=== PATIENT | male | born 1960 | race Caucasian/White ===

== ENCOUNTER 2023-12-09 04:02 | Emergency (ER) | payer OTHER ==
[2023-12-09] MEDS ORDERED: Cefepime 2 GM VIAL ONE (04:21)
[2023-12-09] MEDS ORDERED: Ondansetron PF 4 MG/2 ML Vial ONE (04:21)
[2023-12-09 04:46] LABS: ALT (SGPT) 13 U/L (8-55); AST (SGOT) 15 U/L (5-34); Albumin 2.7 g/dL (3.4-4.8); Alkaline Phosphatase 66 U/L (40-110); Anion Gap 12 mmol/L (10-20); BUN (Urea Nitrogen) 13 mg/dL (8.4-25.7); Bilirubin, Total 0.5 mg/dL (0.2-1.2); Calc. Creatinine Clearance 0 mL/min (70-130); Carbon Dioxide 17 mmol/L (23-31); Chloride 106 mmol/L (98-107); Estimated GFR 75; Globulin 3.3 g/dL (2.4-3.5); Glucose 87 mg/dL (80-115); Potassium 3.4 mmol/L (3.5-5.1); Sodium 132 mmol/L (136-145); Troponin I 0.013 ng/mL (< 0.028)
[2023-12-09 04:47] LABS: Calcium 6.8 mg/dL (7.8-10.44); Critical Call Chemistry NUR.AEB @ 0447
[2023-12-09] MEDS ORDERED: Calcium Gluc 4.6 MEQ/10 ML (100 MG/ML) ONE (04:54)
[2023-12-09 05:12] LABS: Magnesium 1.6 mg/dL (1.6-2.6)
[2023-12-09 05:22] LABS: Band 3 % (5-11); Lymphocytes 9 % (21-51); Monocytes 9 % (0-10)
[2023-12-09 05:23] LABS: Hematocrit 24.9 % (38.8-50.0); Hemoglobin 8.5 g/dL (13.5-17.5); Mean Corpuscular HGB CONC 34.1 g/dL (32.0-36.0); Mean Corpuscular Hemoglobin 29.7 pg (27.0-33.0); Mean Corpuscular Volume 87.1 fl (81.2-95.1); Mean Platelet Volume 9.6 fl (7.4-10.4); Platelet Adequacy Comment Appears Adequate; Platelet Count 348 10x3/uL (150-450); RBC Morph Comment Within Normal Limits; Red Blood Cell (RBC) Count 2.86 10x6/uL (4.32-5.72); White Blood Cell (WBC) Count 16.5 10x3/uL (3.5-10.5)
[2023-12-09 05:24] LABS: Neutrophil 88 % (42-75)
[2023-12-09 05:39] LABS: Bilirubin Neg (Negative); Blood, Urine 150 (Negative); Glucose, Urine (Dipstick) Normal (Negative); Ketone, Urine Negative (Negative); Leukocyte 500 (Negative); Nitrite Negative (Negative); Protein, Urine (Dipstick) 30 mg/dl (Neg-Trace); Urobilinogen Normal mg/dL (Less than 2)
[2023-12-09 05:48] LABS: CAUTI Indications for Culture Fever or rigors; Clarity Slightly Cloudy (Clear)
[2023-12-09 05:49] LABS: Bacteria/HPF 4+ HPF (None Seen); Squamous Epithelial None Seen HPF (0-3)
[2023-12-09 05:50] LABS: Urine Culture Reflex No No
[2023-12-09] MEDS ORDERED: Iopamidol 370 76% 100 ML VIAL ONE (07:59)
== END 2023-12-09 11:26 | disposition short-term general hospital (02) ==
LOC: CSHERS 04:02
DX: N10 Acute pyelonephritis (principal); E11.9 Type 2 diabetes mellitus without complications; I10 Essential (primary) hypertension; E78.5 Hyperlipidemia, unspecified; K62.5 Hemorrhage of anus and rectum; I25.10 Atherosclerotic heart disease of native coronary artery without angina pectoris; B20 Human immunodeficiency virus [HIV] disease; Z95.1 Presence of aortocoronary bypass graft; Z79.82 Long term (current) use of aspirin; Z79.899 Other long term (current) drug therapy
CPT/HCPCS: 36415; 71045; 74177; 80053; 81001; 82330; 83605; 83735; 83880; 84484; 85025; 87040; 87077; 87086; 87186; 93005; 96365; 96367; 96375; J0612; J0692; J2405

== ENCOUNTER 2024-03-06 00:44 | Inpatient (IN) | payer OTHER ==
[2024-03-06 01:36] LABS: #Basophils 0.02 10x3/uL (0.0-0.2); #Eosinphils 0.02 10x3/uL (0.0-0.5); #Monocytes 0.74 10x3/uL (0.0-1.1); #Neutrophils 5.57 10x3/uL (1.5-8.4); %Basophils 0.3 % (0.0-2.0); %Eosinophils 0.3 % (0.0-6.0); %Lymphocytes 8.8 % (18.0-47.0); %Monocytes 10.6 % (0.0-10.0); %Neutrophils 79.4 % (40.0-75.0); Hematocrit 31.1 % (38.8-50.0); Hemoglobin 10.6 g/dL (13.5-17.5); Mean Corpuscular HGB CONC 34.1 g/dL (32.0-36.0); Mean Corpuscular Hemoglobin 31.7 pg (27.0-33.0); Mean Corpuscular Volume 93.1 fl (81.2-95.1); Mean Platelet Volume 9.9 fl (7.4-10.4); Platelet Count 175 10x3/uL (150-450); RBC Distribution Width 14.2 % (11.5-14.5); Red Blood Cell (RBC) Count 3.34 10x6/uL (4.32-5.72)
[2024-03-06 01:41] LABS: ALT (SGPT) 8 U/L (8-55); AST (SGOT) 11 U/L (5-34); Alkaline Phosphatase 54 U/L (40-110); Anion Gap 13 mmol/L (10-20); BUN (Urea Nitrogen) 16 mg/dL (8.4-25.7); Bilirubin, Total 0.4 mg/dL (0.2-1.2); Calc. Creatinine Clearance 0 mL/min (70-130); Calcium 8.5 mg/dL (7.8-10.44); Carbon Dioxide 20 mmol/L (23-31); Chloride 106 mmol/L (98-107); Estimated GFR 60; Globulin 3.5 g/dL (2.4-3.5); Glucose 103 mg/dL (80-115); Potassium 3.2 mmol/L (3.5-5.1); Protein, Total 6.5 g/dL (5.8-8.1); Sodium 136 mmol/L (136-145)
[2024-03-06] MEDS ORDERED: cefTRIAXone (ROCEPHIN) 2 GM VIAL ONE (01:47)
[2024-03-06 02:27] LABS: Bilirubin Neg (Negative); Blood, Urine 50 (Negative); Clarity Clear (Clear); Glucose, Urine (Dipstick) Normal (Negative); Ketone, Urine Negative (Negative); Leukocyte 500 (Negative); Nitrite Negative (Negative); Protein, Urine (Dipstick) 30 mg/dl (Neg-Trace); Urobilinogen Normal mg/dL (Less than 2)
[2024-03-06 02:35] LABS: CAUTI Indications for Culture Pelvic or flank pain; RBC/HPF 0-3 HPF (0-3); Squamous Epithelial 0-3 HPF (0-3)
[2024-03-06 02:36] LABS: Bacteria/HPF Rare-Few HPF (None Seen); Urine Culture Reflex Yes Yes
[2024-03-06] MEDS ORDERED: Nitroglycerin 0.4 MG TAB (25 Tab Bottle) SL PRN (04:42)
[2024-03-06 05:01] LABS: Magnesium 1.7 mg/dL (1.6-2.6)
[2024-03-06 05:04] VITALS: BMI 25.1
[2024-03-06] MEDS: Sodium Chloride 0.9% 1,000 ML IV SCH ×3 (05:30→13:30)
[2024-03-06] MEDS: Potassium Chloride 20 MEQ TAB PO SCH (05:33)
[2024-03-06] MEDS: Communication Order-Pharmacy FS ONE (05:38)
[2024-03-06] MEDS: VANCOMYCIN 1.75 GM/350 ML BAG 1.75 GM in Premix 1 BAG IVPB SCH (06:38)
[2024-03-06] MEDS: Morphine 2 MG/ML VIAL SLOW IVP PRN (07:00)
[2024-03-06] MEDS: Mometasone 100 MCG/PUFF (1 INHALER) INH SCH (07:38)
[2024-03-06] MEDS: Promethazine HCl 12.5 MG, Admixture Fee 1 EACH in Sodium Chloride 0.9% 50 ML IVPB SCH (08:33)
[2024-03-06] MEDS ORDERED: Non-Formulary Medication 1 EACH (Dolutegravir Sodium [Tivicay] 50 MG Tablet) PO SCH (09:00)
[2024-03-06] MEDS: Enoxaparin 40 MG (0.4 mL) SYRINGE SC SCH (09:54)
[2024-03-06] MEDS: Aspirin 81 mg Enteric Coated Tablet PO SCH (09:54)
[2024-03-06] MEDS: Magnesium Oxide 400 MG TAB PO SCH (09:55)
[2024-03-06] MEDS: DULoxetine 30 MG CAP PO SCH ×2 (09:55→20:38)
[2024-03-06] MEDS: Divalproex Sodium DR 500 MG TAB PO SCH (09:57)
[2024-03-06] MEDS: Calcium Carbonate 500 MG TAB PO SCH (10:18)
[2024-03-06] MEDS: Meropenem 1 GM in Sodium Chloride 0.9% 100 ML IVPB SCH ×2 (12:54→20:37)
[2024-03-06] MEDS ORDERED: Vancomycin 1.25 GM in Sodium Chloride 0.9% 250 ML 300 ML IVPB SCH (17:00)
[2024-03-06] MEDS: Ondansetron PF 4 MG/2 ML Vial IVP PRN (17:18)
[2024-03-06] MEDS: Atorvastatin Calcium 40 MG TAB PO SCH (20:38)
[2024-03-06] MEDS: Vancomycin 1 GM in Sodium Chloride 0.9% 250 ML 250 ML IVPB SCH (20:41)
[2024-03-07] MEDS ORDERED: cefTRIAXone\\ROCEPHIN 2 GM in Sodium Chloride 0.9% 100 ML IVPB SCH (02:00)
[2024-03-07 03:52] LABS: #Basophils 0.03 10x3/uL (0.0-0.2); #Eosinphils 0.06 10x3/uL (0.0-0.5); #Monocytes 0.65 10x3/uL (0.0-1.1); #Neutrophils 6.56 10x3/uL (1.5-8.4); %Basophils 0.4 % (0.0-2.0); %Eosinophils 0.7 % (0.0-6.0); %Lymphocytes 11.8 % (18.0-47.0); %Monocytes 7.8 % (0.0-10.0); %Neutrophils 78.7 % (40.0-75.0); Hematocrit 32.5 % (38.8-50.0); Hemoglobin 10.4 g/dL (13.5-17.5); Mean Corpuscular Hemoglobin 32.3 pg (27.0-33.0); Mean Corpuscular Volume 100.9 fl (81.2-95.1); Mean Platelet Volume 10.6 fl (7.4-10.4); Platelet Count 149 10x3/uL (150-450); RBC Distribution Width 14.6 % (11.5-14.5); Red Blood Cell (RBC) Count 3.22 10x6/uL (4.32-5.72); White Blood Cell (WBC) Count 8.3 10x3/uL (3.5-10.5)
[2024-03-07 04:23] LABS: Anion Gap 14 mmol/L (10-20); BUN (Urea Nitrogen) 16 mg/dL (8.4-25.7); Calc. Creatinine Clearance 66 mL/min (70-130); Calcium 8.5 mg/dL (7.8-10.44); Carbon Dioxide 16 mmol/L (23-31); Chloride 112 mmol/L (98-107); Estimated GFR 66; Glucose 75 mg/dL (80-115); Potassium 4.1 mmol/L (3.5-5.1); Sodium 138 mmol/L (136-145)
[2024-03-07 04:25] LABS: Vancomycin, Random 19.7 ug/mL (See Comment)
[2024-03-07 12:37] LABS: %CD4 (Helper/Inducer) 22.1 % (30.8-58.5); Absolute CD4 243 /uL (359-1519); Lymphocytes/Gated Cell Count 1.1 x10E3/uL (0.7-3.1); Total Lymphocyte 16 % (Not Estab.); WBC Total Count 7.3 x10E3/uL (3.4-10.8)
[2024-03-07] MEDS: Calcium Carbonate 500 MG ChewTAB PO SCH ×2 (12:38→21:04)
[2024-03-07] MEDS: Scopolamine 1 mg/72 hour Patch TOP SCH (12:38)
[2024-03-08] MEDS: Acetaminophen 325 MG TAB PO PRN (03:29)
[2024-03-08 08:59] LABS: #Basophils 0.02 10x3/uL (0.0-0.2); #Eosinphils 0.08 10x3/uL (0.0-0.5); #Monocytes 0.65 10x3/uL (0.0-1.1); #Neutrophils 5.81 10x3/uL (1.5-8.4); %Basophils 0.3 % (0.0-2.0); %Eosinophils 1.1 % (0.0-6.0); %Lymphocytes 12.7 % (18.0-47.0); %Monocytes 8.6 % (0.0-10.0); Hematocrit 29.2 % (38.8-50.0); Mean Corpuscular HGB CONC 34.2 g/dL (32.0-36.0); Mean Corpuscular Hemoglobin 32.3 pg (27.0-33.0); Mean Corpuscular Volume 94.2 fl (81.2-95.1); Platelet Count 154 10x3/uL (150-450); RBC Distribution Width 14.5 % (11.5-14.5); White Blood Cell (WBC) Count 7.5 10x3/uL (3.5-10.5)
[2024-03-08] MEDS ORDERED: cefTRIAXone\\ROCEPHIN 2 GM in Sodium Chloride 0.9% 100 ML IVPB SCH (09:00)
[2024-03-08 09:21] LABS: Anion Gap 12 mmol/L (10-20); BUN (Urea Nitrogen) 11 mg/dL (8.4-25.7); Calc. Creatinine Clearance 77 mL/min (70-130); Calcium 8.7 mg/dL (7.8-10.44); Carbon Dioxide 18 mmol/L (23-31); Chloride 109 mmol/L (98-107); Estimated GFR 80; Glucose 106 mg/dL (80-115); Potassium 3.4 mmol/L (3.5-5.1); Sodium 136 mmol/L (136-145)
[2024-03-08] MEDS: Piperacillin/Tazobactam 3.375 GM in Sodium Chloride 0.9% 100 ML IVPB SCH ×2 (10:13→13:46)
[2024-03-08] MEDS ORDERED: Piperacillin/Tazobactam 3.375 GM in Sodium Chloride 0.9% 100 ML IVPB SCH (12:00)
[2024-03-08] MEDS: cefTRIAXone\\ROCEPHIN 2 GM in Sodium Chloride 0.9% 100 ML IVPB SCH (18:41)
[2024-03-08] MEDS: Ventolin HFA Inhaler 60 PUFF INHALER INH PRN (20:05)
[2024-03-09 03:29] LABS: #Basophils 0.04 10x3/uL (0.0-0.2); #Eosinphils 0.12 10x3/uL (0.0-0.5); #Monocytes 0.79 10x3/uL (0.0-1.1); #Neutrophils 5.09 10x3/uL (1.5-8.4); %Basophils 0.6 % (0.0-2.0); %Eosinophils 1.7 % (0.0-6.0); %Lymphocytes 15.8 % (18.0-47.0); %Neutrophils 70.6 % (40.0-75.0); Hematocrit 30.8 % (38.8-50.0); Hemoglobin 10.3 g/dL (13.5-17.5); Mean Corpuscular HGB CONC 33.4 g/dL (32.0-36.0); Mean Corpuscular Volume 95.7 fl (81.2-95.1); Mean Platelet Volume 10.2 fl (7.4-10.4); Platelet Count 173 10x3/uL (150-450); RBC Distribution Width 14.2 % (11.5-14.5); Red Blood Cell (RBC) Count 3.22 10x6/uL (4.32-5.72); White Blood Cell (WBC) Count 7.2 10x3/uL (3.5-10.5)
[2024-03-09 03:55] LABS: Anion Gap 14 mmol/L (10-20); BUN (Urea Nitrogen) 11 mg/dL (8.4-25.7); Calc. Creatinine Clearance 82 mL/min (70-130); Calcium 8.8 mg/dL (7.8-10.44); Carbon Dioxide 19 mmol/L (23-31); Chloride 106 mmol/L (98-107); Estimated GFR 86; Glucose 115 mg/dL (80-115); Potassium 3.1 mmol/L (3.5-5.1); Sodium 136 mmol/L (136-145)
[2024-03-09] MEDS: Potassium Chloride 20 MEQ TAB PO SCH (08:33)
[2024-03-09] MEDS: QUEtiapine 25 MG TAB PO PRN (20:57)
[2024-03-09] MEDS: Lorazepam 2 MG/ML VIAL SLOW IVP SCH (22:34)
[2024-03-10] MEDS: Ziprasidone 20 MG VIAL IM SCH (00:26)
[2024-03-10 04:00] LABS: Hematocrit 30.7 % (38.8-50.0); Hemoglobin 10.5 g/dL (13.5-17.5); Mean Corpuscular HGB CONC 34.2 g/dL (32.0-36.0); Mean Corpuscular Hemoglobin 31.8 pg (27.0-33.0); Mean Platelet Volume 9.6 fl (7.4-10.4); Platelet Count 221 10x3/uL (150-450); White Blood Cell (WBC) Count 6.3 10x3/uL (3.5-10.5)
[2024-03-10 04:03] LABS: MDiff Complete? YES
[2024-03-10 04:12] LABS: Anion Gap 15 mmol/L (10-20); BUN (Urea Nitrogen) 15 mg/dL (8.4-25.7); CK (CPK) 37 U/L (30-200); Calc. Creatinine Clearance 88 mL/min (70-130); Calcium 9.3 mg/dL (7.8-10.44); Carbon Dioxide 22 mmol/L (23-31); Chloride 108 mmol/L (98-107); Estimated GFR 94; Glucose 94 mg/dL (80-115); Potassium 3.3 mmol/L (3.5-5.1); Sodium 142 mmol/L (136-145)
[2024-03-10 04:46] LABS: Band 11 % (5-11); Eosinophils 2 % (0-10); Lymphocytes 12 % (21-51); Monocytes 8 % (0-10); Neutrophil 56 % (42-75); Reactive Lymphocytes 10 % (0-10)
[2024-03-10 04:51] LABS: Dohle Bodies SLIGHT; Platelet Adequacy Comment Appears Adequate; RBC Morph Comment Within Normal Limits; Toxic Granulation SLIGHT
[2024-03-10 08:44] VITALS: BP 153/93; TEMP 98.2
[2024-03-10] MEDS: Potassium Chloride 20 MEQ TAB PO SCH (10:34)
== END 2024-03-10 12:26 | disposition home or self-care (01) | DRG 974 ==
LOC: EEVIPCON 00:44 → CSHERS 00:44 → CSHTELE 03:37
PROVIDERS: ADMIT Family Medicine; ATTEND Internal Medicine
DX: A41.9 Sepsis, unspecified organism (principal); J96.01 Acute respiratory failure with hypoxia; B20 Human immunodeficiency virus [HIV] disease; K62.5 Hemorrhage of anus and rectum; T83.518A Infection and inflammatory reaction due to other urinary catheter, initial encounter; N10 Acute pyelonephritis; Z88.8 Allergy status to other drugs, medicaments and biological substances; Z79.82 Long term (current) use of aspirin; Z79.899 Other long term (current) drug therapy; I25.10 Atherosclerotic heart disease of native coronary artery without angina pectoris; E03.9 Hypothyroidism, unspecified; E11.9 Type 2 diabetes mellitus without complications; K21.9 Gastro-esophageal reflux disease without esophagitis; M19.90 Unspecified osteoarthritis, unspecified site; I10 Essential (primary) hypertension; Z95.1 Presence of aortocoronary bypass graft; Z95.5 Presence of coronary angioplasty implant and graft; Z86.73 Personal history of transient ischemic attack (TIA), and cerebral infarction without residual deficits; N40.0 Benign prostatic hyperplasia without lower urinary tract symptoms; I25.2 Old myocardial infarction; N31.9 Neuromuscular dysfunction of bladder, unspecified; E87.6 Hypokalemia; E78.5 Hyperlipidemia, unspecified; J45.20 Mild intermittent asthma, uncomplicated; J18.9 Pneumonia, unspecified organism
CPT/HCPCS: 36415; 36416; 71045; 76770; 80048; 80053; 80202; 81001; 82550; 83605; 83735; 84443; 85025; 86361; 87040; 87077; 87086; 87149; 87186; 93005; 93010; 94760; 94762; 96365; J0696; J1650; J2060; J2185; J2272; J2405; J2543; J2550; J3370; J3486; J3490; J7050

== ENCOUNTER 2024-09-22 06:47 | Emergency (ER) | payer OTHER ==
[2024-09-22 07:18] LABS: #Basophils 0.04 10x3/uL (0.0-0.2); #Eosinophils 0.07 10x3/uL (0.0-0.5); #Monocytes 0.43 10x3/uL (0.0-1.1); #Neutrophils 6.31 10x3/uL (1.5-8.4); %Basophils 0.5 % (0.0-2.0); %Eosinophils 0.9 % (0.0-6.0); %Monocytes 5.8 % (0.0-10.0); %Neutrophils 85.5 % (40.0-75.0); Hematocrit 38.2 % (38.8-50.0); Hemoglobin 12.8 g/dL (13.5-17.5); Mean Corpuscular HGB CONC 33.5 g/dL (32.0-36.0); Mean Corpuscular Hemoglobin 30.4 pg (27.0-33.0); Mean Corpuscular Volume 90.7 fL (81.2-95.1); Platelet Count 337 10x3/uL (150-450); Red Blood Cell (RBC) Count 4.21 10x6/uL (4.32-5.72); White Blood Cell (WBC) Count 7.4 10x3/uL (3.5-10.5)
[2024-09-22] MEDS ORDERED: Ketorolac Tromethamine 30 MG (1 mL) VIAL ONE (07:22)
[2024-09-22] MEDS ORDERED: Ondansetron PF 4 MG/2 ML Vial ONE ×2 (07:22→17:02)
[2024-09-22 07:42] LABS: ALT (SGPT) 20 U/L (8-55); AST (SGOT) 22 U/L (5-34); Albumin 3.8 g/dL (3.4-4.8); Alkaline Phosphatase 68 U/L (40-110); Anion Gap 16 mmol/L (10-20); BUN (Urea Nitrogen) 16 mg/dL (8.4-25.7); Bilirubin, Total 0.4 mg/dL (0.2-1.2); Calc. Creatinine Clearance 0 mL/min (70-130); Calcium 8.8 mg/dL (7.8-10.44); Carbon Dioxide 22 mmol/L (23-31); Chloride 108 mmol/L (98-107); Estimated GFR 59; Globulin 3.2 g/dL (2.4-3.5); Glucose 130 mg/dL (80-115); Lipase 49 U/L (8-78); Magnesium 1.8 mg/dL (1.6-2.6); Potassium 4.4 mmol/L (3.5-5.1); Sodium 142 mmol/L (136-145)
[2024-09-22 07:50] LABS: Troponin I 0.012 ng/mL (< 0.028)
[2024-09-22 08:17] LABS: Bilirubin Neg (Negative); Blood, Urine 10 (Negative); Clarity Clear (Clear); Glucose, Urine (Dipstick) Normal (Negative); Ketone, Urine Negative (Negative); Leukocyte 25 (Negative); Nitrite Negative (Negative); Protein, Urine (Dipstick) 30 mg/dl (Neg-Trace); Urobilinogen Normal mg/dL (Less than 2)
[2024-09-22 09:07] LABS: Bacteria/HPF Rare-Few HPF (None Seen); CAUTI Indications for Culture Pelvic or flank pain; RBC/HPF 0-3 HPF (0-3)
[2024-09-22 09:08] LABS: Urine Culture Reflex No No
[2024-09-22 09:52] LABS: Troponin I 0.011 ng/mL (< 0.028)
[2024-09-22] MEDS ORDERED: Piperacillin/Tazobactam 3.375 GM VIAL ONE (11:26)
[2024-09-22] MEDS ORDERED: Iopamidol 370 76% 100 ML VIAL ONE (13:01)
== END 2024-09-22 17:26 ==
LOC: CSHERS 06:47 → EEVIPCON 06:47 → CSHERS 17:26
DX: N39.0 Urinary tract infection, site not specified (principal); E87.20 Acidosis, unspecified; I12.9 Hypertensive chronic kidney disease with stage 1 through stage 4 chronic kidney disease, or unspecified chronic kidney disease; E11.22 Type 2 diabetes mellitus with diabetic chronic kidney disease; N18.9 Chronic kidney disease, unspecified
CPT/HCPCS: 36415; 71045; 74177; 80053; 81001; 83605; 83690; 83735; 84145; 84484; 85025; 87040; 93005; 96374; 96375; 96376; J1885; J2405; J2543; Q9967